=== PATIENT | female | born 1965 | race African-American/Black ===

== ENCOUNTER 2016-12-25 07:42 | Emergency (ER) | payer OTHER ==
[~2016-12-25] VITALS: Ht 167.6 cm; Wt 87.0 kg
[2016-12-25] MEDS ORDERED: KETOROLAC 60MG/2ML VIAL IM ONE (10:30)
[2016-12-25 11:10] VITALS: BP 138/94
== END 2016-12-25 11:53 | disposition home or self-care (01) ==
LOC: ER 10:35
DX: M54.5 Low back pain (principal); J06.9 Acute upper respiratory infection, unspecified
CPT/HCPCS: 81025; 96372; 99283; J1885; Z7610

== ENCOUNTER 2017-03-09 15:09 | Emergency (ER) | payer OTHER ==
[~2017-03-09] VITALS: Ht 167.6 cm; Wt 91.0 kg
[2017-03-09] MEDS ORDERED: KETOROLAC 60MG/2ML VIAL IM ONE (18:45)
[2017-03-09 19:40] VITALS: BP 138/76
== END 2017-03-09 21:16 | disposition home or self-care (01) ==
LOC: ER 15:23
DX: S83.92XA Sprain of unspecified site of left knee, initial encounter (principal); M25.462 Effusion, left knee; F17.200 Nicotine dependence, unspecified, uncomplicated; X58.XXXA Exposure to other specified factors, initial encounter; Y92.9 Unspecified place or not applicable
CPT/HCPCS: 73562; 96372; 99284; J1885

== ENCOUNTER 2023-04-03 00:47 | Inpatient (IN) | payer OTHER ==
[~2023-04-03] VITALS: Ht 167.6 cm; Wt 83.9 kg
[2023-04-03 01:24] LABS: BASOPHILS % 0.6 % (0.0-2.0); EOSINOPHILS % 1.8 % (0.0-5.0); HEMATOCRIT. 41.4 % (36.0-48.0); HEMOGLOBIN. 13.4 g/dL (12.0-16.0); LYMPHOCYTES % 37.4 % (20.0-50.0); MEAN CORPUSCULAR HEMOGLOBIN 31.2 pg (28.0-32.0); MEAN CORPUSCULAR HGB CONC 32.4 g/dL (31.0-37.0); MEAN CORPUSCULAR VOLUME 96.4 fL (81.0-99.0); MEAN PLATELET VOLUME 7.7 fl (7.4-10.4); MONOCYTES % 7.4 % (2.0-8.0); NEUTROPHILS % 52.8 % (40.0-76.0); PLATELET 390 x1000/uL (130-400); RED BLOOD CELL COUNT 4.29 mill/uL (4.2-5.4); RED CELL DISTRIBUTION WIDTH 13.7 % (11.6-14.6); WHITE BLOOD COUNT 16.6 x1000/uL (4.5-11.0)
[2023-04-03 01:33] LABS: CLARITY URINE CLEAR (CLEAR); COLOR URINE YELLOW (YELLOW); GLUCOSE URINE NEGATIVE (NEGATIVE); KETONES URINE NEGATIVE (NEGATIVE); LEUKOCYTE ESTERASE URINE NEGATIVE (NEGATIVE); NITRITE URINE NEGATIVE (NEGATIVE); OCCULT BLOOD URINE 2+ (NEGATIVE); PROTEIN URINE NEGATIVE (NEGATIVE); SPECIFIC GRAVITY URINE 1.025 (1.005-1.030); UROBILINOGEN URINE 0.2 E.U./dL (0.2-1.0)
[2023-04-03 01:43] LABS: ALANINE AMINOTRANSFERASE 10 IU/L (10-49); ASPARTATE AMINOTRANSFERASE 15 IU/L (<34); BILIRUBIN TOTAL 0.2 mg/dL (0.1-1.0); CALCIUM 9.4 mg/dL (8.7-10.4); CARBON DIOXIDE 28 mEq/L (21-32); CHLORIDE 107 mEq/L (98-107); CREATININE 0.8 mg/dL (0.6-1.0); GLUCOSE 91 mg/dL (70-105); POTASSIUM 3.7 mEq/L (3.5-5.1); SODIUM 140 mEq/L (136-145); UREA NITROGEN BLOOD 9 mg/dL (9-23)
[2023-04-03 01:45] LABS: TROPONIN I HIGH SENSITIVITY < 4 ng/L (3.0-34)
[2023-04-03 01:47] LABS: BACTERIA URINE TRACE; RBC URINE 0-2 /hpf (0-2); SQUAMOUS EPITHELIAL CELL URINE FEW /lpf (RARE/1+); WBC URINE NONE SEEN /hpf (0-2)
[2023-04-03 01:48] LABS: UCG SCREEN NEGATIVE
[2023-04-03 02:00] LABS: INR 0.9; PARTIAL THROMBOPLASTIN TIME 31.3 sec (23.4-31.0); PROTHROMBIN TIME 9.9 sec (9.6-11.0)
[2023-04-03] MEDS ORDERED: MORPHINE SULFATE 4 MG/ML CPJ (NOT FOR IM USE) IV ONE (03:45)
[2023-04-03 07:55] VITALS: BP 153/87; PULSE 68; RESP 18; TEMP 98.6
[2023-04-03] MEDS ORDERED: KETOROLAC 30MG/ML VIAL IV PRN (08:30)
[2023-04-03] MEDS ORDERED: ONDANSETRON HCL 4MG/2ML INJ IV PRN (08:30)
[2023-04-03] MEDS ORDERED: DOCUSATE SODIUM 100MG CAPSULE PO PRN (08:30)
[2023-04-03] MEDS ORDERED: ZOLPIDEM TARTRATE 5MG TABLET PO PRN (08:30)
[2023-04-03] MEDS ORDERED: CLONIDINE 0.1MG TABLET PO PRN (08:30)
[2023-04-03] MEDS ORDERED: IPRATROPIUM/ALBUTEROL 0.5-3(2.5)MG/3ML NEB NEB PRN (08:30)
[2023-04-03] MEDS ORDERED: NITROGLYCERIN 0.4MG TABLET SL SL PRN (08:30)
[2023-04-03] MEDS ORDERED: GUAIFENESIN 200MG/10ML SUGAR FREE UDC PO PRN (08:30)
[2023-04-03] MEDS ORDERED: ACETAMINOPHEN 325MG TABLET PO PRN ×2 (08:30)
[2023-04-03] MEDS ORDERED: KETOROLAC 15MG/ML VIAL IV PRN (08:30)
[2023-04-03] MEDS ORDERED: MAGNESIUM/ALUMINUM HYDROXIDE/SIMETHICONE 30ML UDC PO PRN (08:30)
[2023-04-03] MEDS: AMLODIPINE 10MG TABLET PO SCH (09:26)
[2023-04-03] MEDS: ASPIRIN 325MG EC TABLET PO SCH (09:27)
[2023-04-03] MEDS: FAMOTIDINE 20MG TABLET PO SCH ×2 (09:27→21:42)
[2023-04-03] MEDS: KETOROLAC 15MG/ML VIAL IV PRN ×2 (09:27→15:49)
[2023-04-03] MEDS: ENOXAPARIN 40MG/0.4ML SYR SUBCUT SCH (09:28)
[2023-04-03 10:43] VITALS: BP 153/87; PULSE 68; RESP 18; TEMP 97.9
[2023-04-03] MEDS ORDERED: LISI10TA26 PO (10:49)
[2023-04-03 12:00] VITALS: BP 153/76; PULSE 71; RESP 18; TEMP 97.9
[2023-04-03 14:38] LABS: *AMPHETAMINES SCREEN URINE NEGATIVE (NEGATIVE); *BARBITURATES SCREEN URINE NEGATIVE (NEGATIVE); *BENZODIAZEPINES SCREEN URINE NEGATIVE (NEGATIVE); *COCAINE SCREEN URINE NEGATIVE (NEGATIVE); CANNABINOID URINE SCREEN PRESUMPTIVE POSITIVE (NEGATIVE); ECSTASY MDMA SCREEN URINE NEGATIVE (NEGATIVE); METHADONE URINE SCREEN Neg (NEGATIVE); OPIATES URINE SCREEN PRESUMPTIVE POSITIVE (NEGATIVE); PHENCYCLIDINE URINE SCREEN NEGATIVE (NEGATIVE)
[2023-04-03 15:02] LABS: T4 FREE 1.41 ng/dL (0.89-1.76); THYROID STIMULATING HORMONE 4.51 uIU/mL (0.55-4.78)
[2023-04-03 16:00] VITALS: BP 126/66; PULSE 64; RESP 18; TEMP 97.7
[2023-04-03 17:40] LABS: CREATINE KINASE 72 IU/L (34-145); CREATINE KINASE MB FRACTION 0.7 ng/mL (0.5-3.6)
[2023-04-03 17:42] LABS: TROPONIN I HIGH SENSITIVITY < 4 ng/L (3.0-34)
[2023-04-03 20:00] VITALS: BP 139/70; PULSE 68; RESP 18; TEMP 97.9
[2023-04-03 22:40] LABS: TROPONIN I HIGH SENSITIVITY < 4 ng/L (3.0-34)
[2023-04-04] VITALS: BP 132/91; PULSE 74; RESP 17; TEMP 97.7
[2023-04-04 04:00] VITALS: BP 118/72; PULSE 17; RESP 17; TEMP 97.5
[2023-04-04 07:40] LABS: BASOPHILS % 0.4 % (0.0-2.0); EOSINOPHILS % 1.4 % (0.0-5.0); HEMATOCRIT. 39.9 % (36.0-48.0); HEMOGLOBIN. 13.6 g/dL (12.0-16.0); LYMPHOCYTES % 28.4 % (20.0-50.0); MEAN CORPUSCULAR HEMOGLOBIN 32.3 pg (28.0-32.0); MEAN CORPUSCULAR VOLUME 94.9 fL (81.0-99.0); MEAN PLATELET VOLUME 7.8 fl (7.4-10.4); NEUTROPHILS % 59.8 % (40.0-76.0); PLATELET 344 x1000/uL (130-400); RED CELL DISTRIBUTION WIDTH 13.7 % (11.6-14.6); WHITE BLOOD COUNT 12.6 x1000/uL (4.5-11.0)
[2023-04-04 08:00] VITALS: BP 131/73; PULSE 64; RESP 18; TEMP 97.7
[2023-04-04 08:28] LABS: ALANINE AMINOTRANSFERASE 35 IU/L (10-49); ALBUMIN 4.1 g/dL (3.2-4.8); ASPARTATE AMINOTRANSFERASE 38 IU/L (<34); BILIRUBIN TOTAL 0.6 mg/dL (0.1-1.0); CALCIUM 9.8 mg/dL (8.7-10.4); CARBON DIOXIDE 28 mEq/L (21-32); CHLORIDE 105 mEq/L (98-107); GLUCOSE 88 mg/dL (70-105); PHOSPHORUS 3.8 mg/dL (2.5-4.9); POTASSIUM 4.3 mEq/L (3.5-5.1); SODIUM 140 mEq/L (136-145); UREA NITROGEN BLOOD 7 mg/dL (9-23)
[2023-04-04 08:44] LABS: CREATININE 0.5 mg/dL (0.6-1.0)
[2023-04-04] MEDS: FAMOTIDINE 20MG TABLET PO SCH (09:06)
[2023-04-04] MEDS: ASPIRIN 325MG EC TABLET PO SCH (09:06)
[2023-04-04] MEDS: AMLODIPINE 10MG TABLET PO SCH (09:06)
[2023-04-04] MEDS: ENOXAPARIN 40MG/0.4ML SYR SUBCUT SCH (09:13)
[2023-04-04 12:00] VITALS: BP 128/69; PULSE 66; RESP 18; TEMP 98.5
[2023-04-04] MEDS ORDERED: AMLO10TA80 PO (13:26)
[2023-04-04 15:16] VITALS: BP 131/73; PULSE 64; TEMP 97.7; O2SAT 100
[2023-04-04 16:00] VITALS: BP 145/79; PULSE 80; RESP 18; TEMP 97.7
== END 2023-04-04 18:21 | disposition home or self-care (01) | DRG 311 ==
LOC: ER 00:47 → 8WST 05:13
PROVIDERS: ADMIT Internal Medicine; ATTEND Internal Medicine
DX: I20.0 Unstable angina (principal); I10 Essential (primary) hypertension; F12.90 Cannabis use, unspecified, uncomplicated; F17.210 Nicotine dependence, cigarettes, uncomplicated; Z79.899 Other long term (current) drug therapy
CPT/HCPCS: 36415; 71045; 80053; 80061; 80305; 81003; 81025; 82550; 82553; 83036; 83735; 83880; 84100; 84439; 84443; 84484; 85025; 93005; 93017; 93306; 93970; 99285; J1650; J1885; J2270